=== PATIENT | male | born 2000 | race Two or more races ===

== ENCOUNTER 2023-04-10 13:05 | Emergency (ER) | payer MEDICAID, OTHER ==
[~2023-04-10] VITALS: Ht 175.3 cm; Wt 157.3 kg
[2023-04-10 14:26] VITALS: BP 129/84; PULSE 86; RESP 18; TEMP 98.2; O2SAT 93
== END 2023-04-10 15:37 | disposition home or self-care (01) ==
LOC: ER 13:05
DX: S46.811A Strain of other muscles, fascia and tendons at shoulder and upper arm level, right arm, initial encounter (principal); V89.2XXA Person injured in unspecified motor-vehicle accident, traffic, initial encounter; Y93.89 Activity, other specified; Y92.89 Other specified places as the place of occurrence of the external cause; Y99.8 Other external cause status
CPT/HCPCS: 73030